=== PATIENT | male | born 2000 | race Caucasian/White ===

== ENCOUNTER 2021-08-19 09:46 | Outpatient (CLI) | payer BC ==
[2021-08-19 18:17] LABS: SARS-CoV-2 PCR by NAA Not Detected (NotDetected)
== END 2021-08-19 09:47 | disposition home or self-care (01) ==
LOC: CSHLAB 09:46
PROVIDERS: ATTEND Surgery
DX: Z20.822 Contact with and (suspected) exposure to COVID-19 (principal); E66.01 Morbid (severe) obesity due to excess calories; Z68.42 Body mass index [BMI] 45.0-49.9, adult
CPT/HCPCS: U0003; U0005

== ENCOUNTER 2021-08-24 06:51 | Day surgery (SDC) | payer BC ==
[2021-08-20 11:24] VITALS: BMI 44.7
[2021-08-24] MEDS ORDERED: Lidocaine 1% MPF 2 ML VIAL ONE (07:25)
[2021-08-24] MEDS ORDERED: PROPOFOL 60 ML ONE (08:49)
[2021-08-24] MEDS ORDERED: Glycopyrrolate 0.2 MG/ML 5 ML SYRINGE ONE (09:00)
== END 2021-08-24 09:44 | disposition home or self-care (01) ==
LOC: CSHSDC 06:51
PROVIDERS: ATTEND Surgery
PROC: 0DB68ZX Excision of Stomach, Via Natural or Artificial Opening Endoscopic, Diagnostic (ICD-10-PCS; principal; 2021-08-24)
DX: K29.70 Gastritis, unspecified, without bleeding (principal); K44.9 Diaphragmatic hernia without obstruction or gangrene; K21.9 Gastro-esophageal reflux disease without esophagitis; E66.01 Morbid (severe) obesity due to excess calories; Z68.41 Body mass index [BMI] 40.0-44.9, adult
CPT/HCPCS: 88305; J2704